=== PATIENT | male | born 1965 | race African-American/Black ===

== ENCOUNTER → 2023-08-14 08:34 | Outpatient (REF) | payer OTHER, SELFPAY | LOC: PAVMRI 08:34 | PROVIDERS: ATTENDING PHYSICIAN Internal Medicine Cardiovascular Disease; FAMILY PHYSICIAN Internal Medicine | DX: I42.2 Other hypertrophic cardiomyopathy (principal); R94.31 Abnormal electrocardiogram [ECG] [EKG]; I10 Essential (primary) hypertension; Z01.810 Encounter for preprocedural cardiovascular examination | CPT/HCPCS: 75561; 75565; A9585 ==